=== PATIENT | female | born 1965 | race Caucasian/White ===

== ENCOUNTER 2020-04-25 15:17 | Inpatient (IN) | payer OTHER, SELFPAY ==
[2020-04-25] VITALS (11 sets, daily range): BP systolic 129–158; BP diastolic 72–91; PULSE 91–125; RESP 14–25; TEMP 36.7–37.3; O2SAT 96–100; BMI 33.7
--- NOTE | ~2020-04-25 | XR_ITS ---
XR chest 2V 04/25/2020 16:02 Indication: Dyspnea. Headache. Procedure: PA and lateral views of the chest Comparison: 10/18/2008 Findings: There is a large hiatal hernia. Heart size normal. No focal air space disease, pulmonary ed henri, pleural effusion or suspected pneumothorax. Impression: 1: No acute cardiopulmonary disease. 2: Large hiatal hernia. Reviewed, dictated and finalized at location A. Impression: 1: No acute cardiopulmonary disease. 2: Large hiatal hernia.
--- NOTE | ~2020-04-25 | XR_ITS ---
EXAMINATION: XR small bowel follow through DATE: 04/27/2020 13:33 INDICATION: Iron deficiency anemia. TECHNIQUE: Oral contrast was administered, and a time course of radiographs of the abdomen was obtain ed. Fluoroscopy of the small bowel was performed. Fluoroscopy exposure time was 0.7 minutes. The tota l number of images was 17. COMPARISON: CT abdomen and pelvis 07/25/2015 FINDINGS: There are no dilated loops of bowel. No mass or stricture. Transit time from the stomach to proximal colon was approximately 30 minutes. IMPRESSION: 1. No etiology for anemia. Reviewed, dictated and finalized at location A. IMPRESSION: 1. No etiology for anemia.
--- NOTE | 2020-04-25 15:23 | ED.GENADULT ---
HPI - General Adult General Chief complaint: Shortness of Breath/Dyspnea Stated complaint: WEAK Time Seen by Provider: 04/25/20 15:22 Source: patient and family Mode of arrival: wheelchair Limitations: no limitations History of Present Illness HPI narrative: Patient is a 54-year-old female with a history of anemia who presents for evaluation of shortness of breath and weakness. Patient reports that she has been feeling more weak over the past couple weeks, she has not been taking any of her iron pills, and not follow-up with her ocularist or beef specialist due to the COVID pandemic. Patient reports shortness of breath that is worse with exertion. She denies chest pain, but reports she is currently experiencing migraine headache. Migraine headache is located over her eyes without visual changes, there is some photosensitivity, no nausea or vomiting. No numbness. Patient reports weakness in her upper and lower extremities. No dark or tarry stool. In the past, patient has had negative endoscopy and colonoscopies. Related Data Home Medications Medication Instructions Recorded Confirmed cyclobenzaprine 10 mg PO TID PRN 04/25/20 erenumab-aooe [Aimovig 70 mg SUBCUT MONTHLY 04/25/20 Autoinjector] losartan 25 mg PO DAILY 04/25/20 paroxetine HCl 40 mg PO DAILY 04/25/20 promethazine 25 mg PO Q6-8H PRN 04/25/20 ropinirole 1 mg PO DAILY 04/25/20 sumatriptan succinate 100 mg PO BID PRN MDD 200 04/25/20 topiramate 50 mg PO DAILY 04/25/20 trazodone 200 mg PO HS PRN 04/25/20 Allergies Allergy/AdvReac Type Severity Reaction Status Date / Time azithromycin Allergy Mild Other Verified 04/25/20 15:34 prochlorperazine Allergy Mild Anxiety Verified 04/25/20 15:34 Sulfa (Sulfonamide Allergy Mild Other Verified 04/25/20 15:34 Antibiotics) Review of Systems Review of Systems: Narrative: CONSTITUTIONAL: Denies fever, chills, or sweats. EYES: Denies visual changes, redness, or discharge. ENT: Denies rhinorrhea, congestion, sore throat, or otalgia. CARDIOVASCULAR: Denies chest pain, reports palpitations, denies edema RESPIRATORY: Reports shortness of breath GASTROINTESTINAL: Denies abdominal pain, nausea, vomiting, or diarrhea. GENITOURINARY: Denies dysuria or hematuria. SKIN: Denies rash or itching. MUSCULOSKELETAL: Denies back pain, joint pain, or myalgia. NEUROLOGIC: Reports headache and weakness PMFSH Past Medical History Medical History (Updated 04/25/20 @ 16:31 by Suzi Ponce MD) Acid reflux Anemia Left humeral fracture Social History Social History (Updated 04/25/20 @ 15:44 by Suzi Ponce MD) Smoking status: Current every day smoker Alcohol intake: current Substance use: never Living arrangements: with family Gender identity (if verbalized by the patient): Female Exam Narrative: Exam Narrative: GENERAL: Awake, alert, conversant, pale HEAD: Normocephalic, atraumatic. EYES: PERRLA and EOMI. ENT: Nares clear, no rhinorrhea or epistaxis. Mucous membranes moist. NECK: Supple. CHEST: No respiratory distress, breathing even and non labored HEART: Tachycardic rate, sinus rhythm ABDOMEN:Non distended, non tender EXTREMITIES: Normal range of motion. No edema. SKIN: Pallor, warm, no rash NEURO:No focal deficits. Alert and oriented x3 Course Vital Signs Vital signs: Vital Signs Pulse Rate 125 H 04/25/20 15:25 Respiratory Rate 14 04/25/20 15:25 Blood Pressure 158/91 H 04/25/20 15:25 Pulse Oximetry 98 04/25/20 15:25 Temperature 36.7 C 04/25/20 17:31 Pulse Rate 111 H 04/25/20 17:31 Respiratory Rate 25 H 04/25/20 17:31 Blood Pressure 147/89 H 04/25/20 17:31 Pulse Oximetry 99 04/25/20 17:31 Medical Decision Making MDM Narrative Medical decision making narrative: Patient is a 54-year-old female with a history of anemia and requiring multiple blood transfusions in the past who presents for evaluation of shortness of breath. At the time of assessment,
[2020-04-25] MEDS: ONDANSETRON INJ 4 MG/2 ML VIAL IV PUSH (15:50)
--- NOTE | 2020-04-25 15:52 | ECG_ITS ---
Measurements Intervals [place] Rate: 123 P: 72 FL: 145 QRS: 31 QRSD: 68 T: 4 QT: 312 QTc: 448 Interpretive Statements SINUS TACHYCARDIA EARLY PRECORDIAL R/S TRANSITION BORDERLINE ST-T WAVE ABNORMALITY- ANTEROLAT/INF LEADS BASELINE ARTIFACT- II, III, AVF ABNORMAL ECG Electronically Signed On 04-25-2020 16:24:25 CDT by Darinel Gross D.O.
[2020-04-25 15:55] LABS: Basophils Absolute Auto 0.1 K/mm3 (0.0-0.1); Basophils Percent Auto 0.9 % (0.2-1.2); Eosinophils Absolute Auto 0.1 K/mm3 (0-0.3); Eosinophils Percent Auto 0.5 % (0-4.4); Hematocrit 21.1 % (37.0-47.0); Immature Granulocyte Absolute 0.06 K/mm3 (0.00-0.031); Immature Granulocyte Percent A 0.5 % (0-0.5); Lymphocytes Absolute Auto 2.57 K/mm3 (0.9-3.2); Lymphocytes Percent Auto 21.9 % (18.3-44.2); Mean Corpuscular HGB Conc 28.4 g/dl (32-36); Mean Corpuscular Hemoglobin 21.3 pg (26-34); Mean Corpuscular Volume 74.8 fl (80-100); Mean Platelet Volume 10.2 fl (7.4-10.4); Monocytes Absolute Auto 0.6 K/mm3 (0.1-0.6); Monocytes Percent Auto 5.5 % (2.6-8.5); Neutrophils Absolute Auto 8.3 K/mm3 (1.3-6.7); Neutrophils Percent Auto 70.7 % (45.5-73.1); Nucleated Red Blood Cells Absolute Auto 0.1 K/mm3 (0.0-0.012); Nucleated Red Blood Cells Perc 0.7 % (0.0-0.2); Platelet Count Result 550 k/mm3 (150-375); Red Blood Count 2.82 M/mm3 (4.2-5.4); Red Cell Distribution Width 19.6 % (11.5-14.5); White Blood Count 11.7 K/mm3 (4.5-10.0)
[2020-04-25 16:02] LABS: Prothrombin Time 12.4 Seconds (11.1-14.7)
[2020-04-25 16:03] LABS: Partial Thromboplastin Time 20.5 SECONDS (22.3-36.8)
[2020-04-25 16:05] LABS: Platelet Estimate Increased (Adequate)
[2020-04-25 16:06] LABS: Hypochromasia 3+ (NORMAL); Stomatocytes 1+ (NORMAL)
[2020-04-25 16:08] LABS: Tear Drop Cells 1+ (NORMAL)
[2020-04-25 16:12] LABS: Blood Urea Nitrogen 12 mg/dL (7-17); Calcium 9.1 mg/dL (8.4-10.2); Carbon Dioxide 23 mmol/L (22-30); Chloride 101 mmol/L (98-107); Estimated CRCL calculation 91 ml/min; Estimated Glomerular Filt Rate > 60; Glucose 143 mg/dL (65-105); Potassium 3.7 mmol/L (3.4-5.0); Sodium 136 mmol/L (137-145)
[2020-04-25 16:24] LABS: Troponin I < 0.012 ng/mL (0.000-0.034)
[2020-04-25] MEDS: SODIUM CHLORIDE 0.9% IV 250 ML 30 ML IV CONT (16:30)
[2020-04-25] MEDS: MAGNESIUM SULF 2 GM/WATER 50ML 2 GM/50 ML BAG IVPB (16:58)
[2020-04-25] MEDS: TUBING, BLOOD PLUM PUMP TUBING 1 EACH XX (17:21)
--- NOTE | 2020-04-25 19:50 | ADMGEN ---
This patient, Lauren Tidwell, was admitted to 3 [facility] Surg Room 312-01. Patient/family oriented to hospital policies and general routines including ID bracelet, bed and alarms, visiting hours, pain management, procedures, bathroom and other care routines, personal items, smoking policy, room service/diet, and visiting hours. Valuables list has been completed. Information on how to activate the Rapid Response Team has been discussed. Patient/Family are encouraged to report perceived risks to care and to ask questions if they do not understand what they are told or what they should do.
[2020-04-25 20:08] LABS: Hematocrit 26.7 % (37.0-47.0)
--- NOTE | 2020-04-25 20:53 | PM.IMHP ---
H&P: HPI History of Present Illness Chief complaint: Symptomatic anemia Narrative: Lauren Tidwell is a 54 year old female has a past medical history of anemia. The patient stated in 2013 she had a GI bleed was evaluated by Dr. Cooley. She was not able to follow-up with Dr. Cooley in was released from his care. The patient stated that she has not had an EGD or colonoscopy since 2013. She said when she had those scope son in 2013 dated not find anything abnormal. She states that she has been to [facility] due to her anemia has had blood transfusions but has not had 1 since around 2014. She has and had a workup since then. Patient stated that she has been feeling weak over the last couple weeks and she has been taking her iron pills but did not follow-up with any of her specialist due to the COVID pandemic. She said that her shortness of breath is worse with exertion. Patient is very pale she is experiencing some migraines and some leg cramps. She had no dark or tarry stools. Hemoglobin Was 6.0 she did get a blood transfusion which made her hemoglobin come up to 8.0 and her hematocrit 26.7. Patient is complaining of migraines at this time. Troponin was negative. Cardiopulmonary disease. Large hiatal hernia. Review of Systems Review of Systems: All systems reviewed & are unremarkable except as noted in HPI and below Constitutional: Constitutional: Reports as per HPI and Reports no additional constitutional complaints Eyes: Eyes: Reports as per HPI and Reports no additional eye complaints ENT: Reports system reviewed and no additional complaints, except as documented and Reports Normal hearing present Cardiovascular: Cardiovascular: Reports no additional cardiovascular complaints Respiratory: Respiratory: Reports no additional respiratory complaints and Reports no additional respiratory complaints Gastrointestinal: Gastrointestinal: Reports as per HPI and Reports no additional gastrointestinal complaints Musculoskeletal: Musculoskeletal: Reports no additional musculoskeletal complaints Integumentary/Breasts: Skin/Breast: Reports system reviewed and no additional complaints, except as docu and Reports as per HPI Neurologic: Reports system reviewed and no additional complaints, except as documented, Reports as per HPI and Reports Normal hearing present Psychiatric: Psychiatric: Reports no additional psychiatric complaints and Reports as per HPI Endocrine: Endocrine: Reports no additional endocrine complaints Hematologic/Lymphatic: Hematologic/Lymphatic: Reports no additional hematologic/lymphatic complaints Allergic/Immunologic: Allergic/Immunologic: Reports no additional allergic/immunologic complaints [facility] Past Medical History Medical History (Updated 04/25/20 @ 21:26 by Salome Espinosa NP) Acid reflux Anemia Anxiety Depression GERD with esophagitis HTN (hypertension) with goal to be determined Left humeral fracture Migraines Restless leg syndrome Surgical History Surgical History (Updated 04/25/20 @ 21:02 by Salome Espinosa NP) S/P tonsillectomy and adenoidectomy Family History Family History (Updated 04/25/20 @ 21:09 by Salome Espinosa NP) Mother Thyroid disease Hypertension Father Parkinson's disease Social History Social History (Updated 04/25/20 @ 21:10 by Salome Espinosa NP) Social History: The patient has 5 children. She desires to have her son as a durable power assistant district attorney for healthcare. She lives with her son. She was a homemaker. Patient uses E cigarettes no marijuana illicit drugs or alcohol. Smoking status: Current every day smoker Tobacco type: e-cigarettes/vaping Alcohol intake: never Substance use: never Living arrangements: with family Occupation/Education: other Gender identity (if verbalized by the patient): Female Spiritual care concerns: No Meds Home Medications and Allergies Home Medications Medication Instructions Rec
[2020-04-25] MEDS: SUMAtriptan SUCCINATE 25 MG TABLET 100 MG PO (21:08)
[2020-04-26] VITALS (9 sets, daily range): BP systolic 114–127; BP diastolic 62–84; PULSE 84–100; RESP 16–20; TEMP 36.2–37; O2SAT 96–100
[2020-04-26 00:35] LABS: Hematocrit 26.7 % (37.0-47.0); Hemoglobin 8.2 g/dL (12.0-15.0)
[2020-04-26 06:07] LABS: Basophils Percent Auto 0.4 % (0.2-1.2); Hematocrit 26.3 % (37.0-47.0); Hemoglobin 7.9 g/dL (12.0-15.0); Immature Granulocyte Absolute 0.15 K/mm3 (0.00-0.031); Immature Granulocyte Percent A 1.5 % (0-0.5); Lymphocytes Absolute Auto 1.43 K/mm3 (0.9-3.2); Lymphocytes Percent Auto 14.1 % (18.3-44.2); Mean Corpuscular Hemoglobin 23.4 pg (26-34); Mean Corpuscular Volume 77.8 fl (80-100); Mean Platelet Volume 9.9 fl (7.4-10.4); Monocytes Absolute Auto 0.3 K/mm3 (0.1-0.6); Monocytes Percent Auto 2.7 % (2.6-8.5); Neutrophils Absolute Auto 8.3 K/mm3 (1.3-6.7); Neutrophils Percent Auto 81.3 % (45.5-73.1); Nucleated Red Blood Cells Absolute Auto 0.1 K/mm3 (0.0-0.012); Nucleated Red Blood Cells Perc 1.2 % (0.0-0.2); Platelet Count Result 457 k/mm3 (150-375); Red Blood Count 3.38 M/mm3 (4.2-5.4); Red Cell Distribution Width 19.6 % (11.5-14.5); White Blood Count 10.2 K/mm3 (4.5-10.0)
[2020-04-26 06:41] LABS: Blood Urea Nitrogen 14 mg/dL (7-17); CRP 1.1 mg/dL (<1.0); Calcium 8.8 mg/dL (8.4-10.2); Carbon Dioxide 25 mmol/L (22-30); Chloride 103 mmol/L (98-107); Estimated CRCL calculation 100 ml/min; Estimated Glomerular Filt Rate > 60; Glucose 149 mg/dL (65-105); Magnesium 2.3 mg/dL (1.6-2.3); Potassium 4.3 mmol/L (3.4-5.0); Sodium 136 mmol/L (137-145)
[2020-04-26 07:52] LABS: Thyroid Stimulating Hormone Reflex 0.675 uIU/mL (0.465-4.68)
[2020-04-26] MEDS: LOSARTAN POTASSIUM 25 MG TABLET PO (08:20)
[2020-04-26] MEDS: TOPIRAMATE 25 MG TABLET 50 MG PO (08:20)
[2020-04-26] MEDS: PAROXETINE 20 MG TABLET 40 MG PO (08:20)
[2020-04-26] MEDS: PANTOPRAZOLE SODIUM IV 40 MG VIAL IV PUSH ×2 (08:21→20:31)
[2020-04-26] MEDS: SUMAtriptan SUCCINATE 25 MG TABLET 100 MG PO (08:36)
--- NOTE | 2020-04-26 11:49 | PM.IMPN ---
Progress Note: A&P Assessment and Plan (1) Symptomatic anemia: Code(s): D64.9 - Anemia, unspecified Status: Acute Assessment and Plan: Chronic and microcytic.She has been off of oral iron supplementation for >1 year. In review of records which were faxed from [facility], she has had an episode of significant anemia previously in August 2014 with a hemoglobin of 2.7. EGD at that time revealed gastritis. She was evaluated by Dr. Cooley but was discharged from services due to noncompliance. She reports regular NSAID use. Her hemoglobin was 6.0 and hematocrit was 21.1. She underwent transfusion 1 unit on 04/25/2020. Today, hemoglobin is 7.9 and hematocrit is 26.3. She is symptomatic, however vitals are stable. Gastroenterology has been consulted and recommendations are appreciated. Hematology has been consulted and recommendations are appreciated Continue to monitor H&H Q6H Continue IV Protonix Iron panel, B12, and folate are pending IFOB has been ordered but has not been collected. Will give MiraLax and stool softener. Avoid NSAIDs. (2) HTN (hypertension) with goal to be determined: Code(s): I10 - Essential (primary) hypertension Status: Acute Assessment and Plan: Blood pressure elevated at presentation. Blood pressures have been reviewed today and are at target. Stable at 127/84. Continue home losartan Continue to monitor blood pressure (3) Migraines: Code(s): G43.909 - Migraine, unspecified, not intractable, without status migrainosus Status: Chronic Assessment and Plan: She has a history of migraines for which she takes sumatriptan, topiramate, and Aimovig. She also admits to taking Advil regularly for headaches. She endorses mild headache today. Continue sumatriptan, aimovig, and topiramate (4) Restless leg syndrome: Code(s): G25.81 - Restless legs syndrome Status: Acute Assessment and Plan: Stable at this time. Continue with ropinirole (5) GERD with esophagitis: Code(s): K21.0 - Gastro-esophageal reflux disease with esophagitis Status: Chronic Assessment and Plan: She has a history of GERD. Continue with promethazine and Protonix IV (6) Anxiety: Code(s): F41.9 - Anxiety disorder, unspecified Status: Chronic Assessment and Plan: She feels anxious today. Continue with paroxetine and trazodone Subjective Date/time seen: 04/26/20 11:49 Interval history: Date of service: 04/26/2020 Ms. Tidwell reports to feeling anxious today about being in the hospital about her medical condition. She complains of generalized weakness, shortness of breath with ambulation, diaphoresis, palpitations, dizziness, and lightheadedness. She denies any obvious bleeding or bruising. She tells me that her symptoms have been going on for several weeks. She also has associated nausea but has not vomited. She has a mild headache at this time but she does not have a migraine. She tells me that she has been taking Advil regularly for headaches and migraines. She denies abdominal pain. Her last bowel movement was 1 week ago. She denies melena or hematochezia. She denies dysuria or hematuria. She is urinating regularly. Review of Systems Review of Systems: Narrative: A 12 point review of systems was reviewed with pertinent positives and negatives as per HPI. Exam Narrative: Exam Narrative: Ms. Tidwell is examined alone today. She is a well-nourished, pale appearing 54-year-old female who is lying supine in bed. She appears comfortable and is in no acute respiratory distress. HR 88, BP 127/84, RR 16, T 98.6?, 96% on room air Neuro: awake, alert and oriented x4, speech clear, no focal neuro deficits noted HEENMT: normocephalic, atraumatic, EOMI, sclerae anicteric, conjunctival pallor, moist oral mucosa Neck: supple, no lymphadenopathy Respiratory: clear to auscu
--- NOTE | 2020-04-26 12:39 | WPDGICN ---
Assessment and Plan Assessment and plan (1) Anemia: Code(s): D64.9 - Anemia, unspecified Status: Chronic Assessment and Plan: Patient has microcytic anemia. Suspicious for iron deficiency. Plan is to check iron studies as well as folate B12 levels. Stool Hemoccult will be obtained. There is no obvious signs of GI blood loss. But this remains a concern. Colonoscopy an EGD will be anticipated in the morning after preparation today to exclude potential GI source of iron deficiency anemia. (2) Migraines: Code(s): G43.909 - Migraine, unspecified, not intractable, without status migrainosus Status: Chronic (3) Anxiety: Code(s): F41.9 - Anxiety disorder, unspecified Status: Chronic GI Consult Note Consult date/time: 04/26/20 12:39 HPI: Lauren Tidwell is a 54 year old female seen in evaluation at the request of the hospitalist service. Patient has been found to have iron deficiency anemia. She reports a 3-4 week history of progressive fatigue weakness. She reports shortness of breath on exertion. For this reason she presented to the emergency room last evening was found to have a hemoglobin of approximately 6. This required transfusion. She does have microcytic indices suggesting chronic anemia. Patient denies any obvious signs of GI blood loss. She denies any dark stools she denies any blood in her stools. She has had no bruising. She has an no blood in her urine. No other signs of blood loss noted. Patient does report similar presentation in 1999. At that time underwent GI endoscopy by Dr. Vik moscoso that is reported to be unremarkable. These reports are not available for review at this time. Patient's family history is noncontributory there is no reported history of colon or rectal disease within the family. Review of Systems Review of Systems: All systems reviewed & are unremarkable except as noted in HPI and below PMFSH Past Medical History Medical History Acid reflux Anemia Anxiety Depression GERD with esophagitis HTN (hypertension) with goal to be determined Left humeral fracture Migraines Restless leg syndrome Surgical History Surgical History S/P tonsillectomy and adenoidectomy Family History Family History Mother Thyroid disease Hypertension Father Parkinson's disease Social History Social History Social History: The patient has 5 children. She desires to have her son as a durable power real estate attorney for healthcare. She lives with her son. She was a homemaker. Patient uses E cigarettes no marijuana illicit drugs or alcohol. Smoking status: Current every day smoker Tobacco type: e-cigarettes/vaping Alcohol intake: never Substance use: never Living arrangements: with family Occupation/Education: other Gender identity (if verbalized by the patient): Female Spiritual care concerns: No Meds Home Medications and Allergies Home Medications Medication Instructions Recorded Confirmed Type cyclobenzaprine 10 mg PO TID PRN 04/25/20 04/25/20 History erenumab-aooe [Aimovig 70 mg SUBCUT MONTHLY 04/25/20 04/25/20 History Autoinjector] losartan 25 mg PO DAILY 04/25/20 04/25/20 History paroxetine HCl 40 mg PO DAILY 04/25/20 04/25/20 History promethazine 25 mg PO Q6-8H PRN 04/25/20 04/25/20 History ropinirole 1 mg PO DAILY 04/25/20 04/25/20 History sumatriptan succinate 100 mg PO BID PRN MDD 200 04/25/20 04/25/20 History topiramate 50 mg PO DAILY 04/25/20 04/25/20 History trazodone 200 mg PO HS PRN 04/25/20 04/25/20 History Allergies Allergy/AdvReac Type Severity Reaction Status Date / Time azithromycin Allergy Mild Other Verified 04/25/20 15:34 prochlorperazine Allergy Mild Anxiety Verified 04/25/20 15:34 Sulfa (Sulf
[2020-04-26 12:42] LABS: Hematocrit 26.5 % (37.0-47.0)
[2020-04-26 13:08] LABS: Iron 16 ug/dL (37-170)
[2020-04-26 13:17] LABS: Percent Iron Saturation 3 % (20-50)
[2020-04-26 13:46] LABS: Ferritin 2.89 ng/mL (11.1-264)
[2020-04-26 14:26] LABS: Folic Acid > 20.0 ng/mL (2.76->20)
[2020-04-26] MEDS: PEG (High)/E-LYTE SOLN 4,000 ML BTL 4000 ML PO (15:13)
[2020-04-26 18:47] LABS: Hematocrit 24.8 % (37.0-47.0); Hemoglobin 7.4 g/dL (12.0-15.0)
[2020-04-26] MEDS: CYCLOBENZAPRINE HCL 10 MG TABLET PO (20:31)
[2020-04-26] MEDS: IRON SUCROSE COMPLEX 500 MG in SODIUM CHLORIDE 0.9% IV 250 ML 78.6 MG IVPB (20:57)
[2020-04-26 22:33] LABS: IFOB Positive Control Positive; Immunochemical Fecal Occult Bl Negative (N)
--- NOTE | 2020-04-26 23:50 | CONS_ITS ---
DATE OF CONSULTATION: REASON FOR CONSULTATION: Iron deficiency anemia. HISTORY OF PRESENTING ILLNESS: This is a 54-year-old female with a previous history of anemia secondary to gastrointestinal bleed. She was evaluated by Dr. Cooley and had colonoscopy and EGD done in 2013 and that came back unremarkable. The patient now came into the hospital with extreme tiredness and fatigue. She has been complaining of shortness of breath and dyspnea on exertion. She has occasional leg cramps. Denies any hematochezia, but has occasional intermittent black stool. Her hemoglobin was 6.0 on admission. She denies being a vegetarian. She denies any previous history of stomach surgeries. REVIEW OF SYSTEMS: 12-point review of system was reviewed and as per HPI, otherwise negative. PAST MEDICAL HISTORY: Gastroesophageal reflux disease, anemia, anxiety, depression, GERD, hypertension, left humeral fracture, migraine, and restless legs syndrome. PAST SURGICAL HISTORY: Tonsillectomy and adenoidectomy. FAMILY HISTORY: Mother had cervical cancer. Grandmother had lung cancer. SOCIAL HISTORY: The patient is . She is a homemaker. Denies any history of smoking and drinking. HOME MEDICATIONS: Reviewed. ALLERGIES: REVIEWED. PHYSICAL EXAMINATION: GENERAL: This patient is a well-developed, well-nourished female, in no apparent distress. Alert and oriented. VITAL SIGNS: Per nursing note. HEENT: Normocephalic, atraumatic. Clear oropharynx. LUNGS: Clear to auscultation bilaterally. CARDIOVASCULAR: Regular rate and rhythm. No murmurs. ABDOMEN: Soft, nontender, nondistended. Bowel sounds are positive in all 4 quadrants. No hepatosplenomegaly. EXTREMITIES: No edema. NEUROLOGIC: Grossly intact. LABORATORY DATA: WBC 10.2, hemoglobin 7.9, MCV 77, platelet 457,000, and neutrophils 81%. Creatinine 0.6. Iron 69, saturation 3, ferritin 2.89, vitamin B12 of 425. ASSESSMENT AND PLAN: 1. Moderate microcytic anemia. This is secondary to iron deficiency. The patient denies any obvious bleeding, but has intermittent black tarry stool. She is quite tired and fatigued. She has a previous history of anemia and had colonoscopy and EGD done by Dr. Cooley in 2013 and apparently came back unremarkable. The patient has been seen by Dr. Kingsley and plan is to perform EGD and colonoscopy in the morning. I will start her on IV iron infusion in the meantime. I have provided her my office information. Based on the colonoscopy finding, we will make further recommendations. I have answered all the questions to the patient's satisfaction. 2. History of anxiety. The patient seems to be stable. 3. Hypertension. Continue current management. JOSÉ ANTONIO Cara NOVAK M.D. INTERVENTIONAL PHYSICIAN INTERVENTIONAL PHYSICIAN D Dave MT: [place]
[2020-04-27] VITALS (16 sets, daily range): BP systolic 98–142; BP diastolic 52–70; PULSE 71–90; RESP 14–20; TEMP 36.1–37.1; O2SAT 93–99
[2020-04-27 00:28] LABS: Hematocrit 22.9 % (37.0-47.0)
[2020-04-27 00:37] LABS: Hemoglobin 6.7 g/dL (12.0-15.0)
[2020-04-27 05:56] LABS: Hematocrit 27.1 % (37.0-47.0); Hemoglobin 8.2 g/dL (12.0-15.0); Mean Corpuscular HGB Conc 30.3 g/dl (32-36); Mean Corpuscular Hemoglobin 24.8 pg (26-34); Mean Corpuscular Volume 81.9 fl (80-100); Mean Platelet Volume 9.6 fl (7.4-10.4); Platelet Count Result 349 k/mm3 (150-375); Red Blood Count 3.31 M/mm3 (4.2-5.4); Red Cell Distribution Width 21.5 % (11.5-14.5)
[2020-04-27 06:00] LABS: Blood Urea Nitrogen 14 mg/dL (7-17); Calcium 8.2 mg/dL (8.4-10.2); Carbon Dioxide 25 mmol/L (22-30); Chloride 105 mmol/L (98-107); Estimated CRCL calculation 87 ml/min; Estimated Glomerular Filt Rate > 60; Glucose 104 mg/dL (65-105); Potassium 3.6 mmol/L (3.4-5.0); Sodium 137 mmol/L (137-145)
[2020-04-27 06:26] LABS: Band Neutrophils Percent 1 % (0-6); Hypochromasia 2+ (NORMAL); Lymphocytes Absolute Manual 3.45 K/mm3 (1.1-4.5); Monocytes Percent Manual 8 % (3-9); Neutrophils Absolute Manual 10.35 K/mm3 (1.7-7.2); Neutrophils Percent Manual 68 % (46-73); Nucleated Red Blood Cells 2 %; Platelet Estimate Adequate (Adequate); Polychromasia 2+ (NORMAL); Total Cells Counted 100
[2020-04-27] MEDS: PEG (High)/E-LYTE SOLN 4,000 ML BTL 1000 ML PO (07:25)
[2020-04-27] MEDS: TOPIRAMATE 25 MG TABLET 50 MG PO (08:00)
[2020-04-27] MEDS: LOSARTAN POTASSIUM 25 MG TABLET PO (08:00)
[2020-04-27] MEDS: PANTOPRAZOLE SODIUM IV 40 MG VIAL IV PUSH ×2 (08:00→20:41)
[2020-04-27] MEDS: PAROXETINE 20 MG TABLET 40 MG PO (08:00)
[2020-04-27] MEDS: ONDANSETRON INJ 4 MG/2 ML VIAL IV PUSH (09:08)
--- NOTE | 2020-04-27 10:42 | WPDANESEPPF ---
Anes - Initial Pre Proc Eval Procedure: Operation Date: 04/27/20 10:00 Proposed Procedures p Esophagogastroduodenoscopy & Colonoscopy - Zack Kingsley MD Date/Time: 04/27/20 10:42 Surgeon: Michelle Escamilla PA-C Pre Op Diagnosis: Symptomatic anemia Patient Data Age: 54 Gender: F Height: 1.63 m Weight: 89.3 kg Last Vital Signs Temp 36.7 C 04/27/20 10:10 Pulse 88 04/27/20 10:10 Resp 18 04/27/20 10:10 BP 124/68 04/27/20 10:10 Pulse Ox 96 04/27/20 10:10 Allergies Allergy/AdvReac Type Severity Reaction Status Date / Time azithromycin Allergy Mild Other Verified 04/25/20 15:34 prochlorperazine Allergy Mild Anxiety Verified 04/25/20 15:34 Sulfa (Sulfonamide Allergy Mild Other Verified 04/25/20 15:34 Antibiotics) Home Medications Medication Instructions Recorded Confirmed Type cyclobenzaprine 10 mg PO TID PRN 04/25/20 04/25/20 History erenumab-aooe [Aimovig 70 mg SUBCUT MONTHLY 04/25/20 04/25/20 History Autoinjector] losartan 25 mg PO DAILY 04/25/20 04/25/20 History paroxetine HCl 40 mg PO DAILY 04/25/20 04/25/20 History promethazine 25 mg PO Q6-8H PRN 04/25/20 04/25/20 History ropinirole 1 mg PO DAILY 04/25/20 04/25/20 History sumatriptan succinate 100 mg PO BID PRN MDD 200 04/25/20 04/25/20 History topiramate 50 mg PO DAILY 04/25/20 04/25/20 History trazodone 200 mg PO HS PRN 04/25/20 04/25/20 History Laboratory Tests 04/25/20 04/26/20 04/26/20 15:50 12:23 12:24 WBC RBC Hgb 8.0 g/dL L g/dL (12.0-15.0) Hct 26.5 % L % (37.0-47.0) MCV MCH MCHC RDW Plt Count MPV Immature Gran % (Auto) Neut % (Auto) Lymph % (Auto) Daniels % (Auto) Eos % (Auto) Baso % (Auto) Lymph # (Auto) Daniels # (Auto) Eos # (Auto) Baso # (Auto) Abs Immat Gran (auto) Absolute Neuts (auto) Absolute Nucleated RBC Total Counted Neutrophils % (Manual) Band Neutrophils % Lymphocytes % (Manual) Monocytes % (Manual) Nucleated RBC % Abs Neuts (Manual) Abs Lymphs (Manual) Abs Monocytes (Manual) Nucleated RBCs Platelet Estimate Polychromasia Hypochromasia Sodium Potassium Chloride Carbon Dioxide BUN Creatinine Estim Creat Clear Calc Estimated GFR Glucose Calcium Iron 16 ug/dL L ug/dL (37-170) TIBC 502 ug/dL H ug/dL (261-462) % Saturation 3 % L % (20-50) Ferritin 2.89 ng/mL L ng/mL (11.1-264) Vitamin B12 Folate Stl Occult Blood (IFOB) Blood Type A Positive Antibody Screen Negative Crossmatch See Detail 04/26/20 04/26/20 04/26/20 12:24 18:25 21:53 WBC RBC Hgb 7.4 g/dL L g/dL (12.0-15.0) Hct 24.8 % L % (37.0-47.0) MCV MCH MCHC RDW Plt Count MPV Immature Gran % (Auto) Neut % (Auto) Lymph % (Auto) Daniels % (Auto) Eos % (Auto) Baso % (Auto) Lymph # (Auto) Daniels # (Auto) Eos # (Auto) Baso # (Auto) Abs Immat Gran (auto) Absolute Neuts (auto) Absolute Nucleated RBC Total Counted Neutrophils % (Manual) Band Neutrophils % Lymphocytes % (Manual) Monocytes % (Manual) Nucleated RBC % Abs Neuts (Manual
[2020-04-27] MEDS: LACTATED RINGERS 1,000 ML 150 ML IV CONT (10:55)
--- NOTE | 2020-04-27 11:15 | SUR.OPER ---
EGD ENDED 1109, COLONOSCOPY STARTED 1114
--- NOTE | 2020-04-27 12:18 | PM.IMPN ---
Progress Note: A&P Assessment and Plan (1) Symptomatic anemia: Code(s): D64.9 - Anemia, unspecified Status: Acute Assessment and Plan: Chronic and microcytic. She has been off of oral iron supplementation for >1 year. She has been evaluated by Dr. Cooley for anemia previously. At presentation, her hemoglobin was 6.0 and hematocrit was 21.1. She underwent transfusion 1 unit on 04/25/2020. She again required 1 unit of PRBCs early this morning because her hemoglobin was 6.7. Following transfusion, hemoglobin was 8.2 and hematocrit 27.1. Iron studies are consistent with iron deficiency anemia. B12 and folate wnl. IFOB was negative. Gastroenterology has been consulted and recommendations are appreciated. She had EGD and colonoscopy today which revealed a hiatal hernia and no GI source of anemia. She will undergo a small bowel follow-through today. Hematology has been consulted and recommendations are appreciated Continue IV iron infusion. She will require oral iron supplementation at discharge Continue to monitor H&H Q6H Continue IV Protonix (2) HTN (hypertension) with goal to be determined: Code(s): I10 - Essential (primary) hypertension Status: Acute Assessment and Plan: Blood pressure elevated at presentation. Blood pressures have been reviewed today and are low/normal. Continue home losartan Check orthostatic blood pressure 1 time Continue to monitor blood pressure (3) Migraines: Code(s): G43.909 - Migraine, unspecified, not intractable, without status migrainosus Status: Chronic Assessment and Plan: She has a history of migraines for which she takes sumatriptan, topiramate, and Aimovig. She also admits to taking Advil regularly for headaches. She endorses mild headache today. Continue home regimen (4) Restless leg syndrome: Code(s): G25.81 - Restless legs syndrome Status: Acute Assessment and Plan: Stable at this time. Continue with ropinirole (5) GERD with esophagitis: Code(s): K21.0 - Gastro-esophageal reflux disease with esophagitis Status: Chronic Assessment and Plan: She has a history of GERD. Continue with Protonix IV (6) Anxiety: Code(s): F41.9 - Anxiety disorder, unspecified Status: Chronic Assessment and Plan: She feels anxious today. Continue with paroxetine and trazodone Subjective Date/time seen: 04/27/20 12:18 Interval history: Date of service: 04/27/2020 Ms. Tidwell reports she is feeling very fatigued today. She endorses very mild shortness of breath when she is ambulating. She endorses mild dizziness that occurs intermittently when she rotates in bed. She denies dizziness or lightheadedness upon standing. She denies chest pain or palpitations. She denies any active bleeding or bruising. She denies dysuria or hematuria. She had a normal formed bowel movement this morning without melena or hematochezia. She has returned from colonoscopy an EGD and is feeling hungry and asking to eat. She slept well last night. She feels somewhat anxious about being in the hospital. Review of Systems Review of Systems: Narrative: A 12 point review of systems was reviewed with pertinent positives and negatives as per HPI. Exam Narrative: Exam Narrative: Ms. Tidwell is examined alone today. She is a well-nourished, pale appearing 54-year-old female who is lying supine in bed. She appears comfortable and is in no acute respiratory distress. HR 81, BP 106/60, RR 16, T 98.1?, 96% on room air Neuro: awake, alert and oriented x4, speech clear, no focal neuro deficits noted HEENMT: normocephalic, atraumatic, EOMI, sclerae anicteric, conjunctival pallor, moist oral mucosa Neck: supple, no lymphadenopathy Respiratory: clear to auscultation bilaterally, normal respiratory effort Cardio: regular rate, regular rhythm, normal S1 and S2 Abdomen: no
--- NOTE | 2020-04-27 13:05 | PC.NURSE ---
`1200 back to floor from surgery, a/o x3, assisted to b/r gait slow and steady.
[2020-04-27 14:02] LABS: Hematocrit 26.9 % (37.0-47.0); Hemoglobin 8.3 g/dL (12.0-15.0)
--- NOTE | 2020-04-27 17:52 | WPDONCPN ---
Progress Note: A/P - Additional Plan Iron deficiency anemia. So for unclear etiology. EGD showed large hiatal hernia. Colonoscopy unremarkable. A small bowel series also unremarkable. Patient will continue 2nd round of IV iron infusion. She can be discharged home on ferrous sulfate 325 mg t.i.d. with vitamin-C 500 mg daily. She will follow-up with me in 2 weeks for repeat blood test. - Time Spent With Patient Total time spent is greater than 50% in coordination of care (as documented) at patient's floor/unit and/or counseling patient: 15 - 25 minutes Subjective Interval history: Iron deficiency anemia Review of Systems - Review of Systems Patient looks quite comfortable. She remains tired and weak. Denies any bleeding and bruising. No other new complaints. - Neurologic Reports system reviewed and no additional complaints, except as documented, Reports hearing normal Exam Vital signs: Temp Pulse Resp BP Pulse Ox 36.3 C L 72 20 142/62 H 99 04/27/20 14:00 04/27/20 14:00 04/27/20 14:00 04/27/20 14:00 04/27/20 14:00 Narrative: Lungs are clear to auscultation bilaterally Cardiovascular regular rate rhythm no murmurs Abdomen soft nontender nondistended bowel sounds are positive Extremities no edema PN: Objective Data - Labs CBC & Chem 7: 04/27/20 13:53 04/27/20 05:28 Labs: Laboratory Results - last 24 hr 04/25/20 04/26/20 04/26/20 15:50 18:25 21:53 WBC RBC Hgb 7.4 L Hct 24.8 L MCV MCH MCHC RDW Plt Count MPV Immature Gran % (Auto) Neut % (Auto) Lymph % (Auto) [place]igs % (Auto) Eos % (Auto) Baso % (Auto) Lymph # (Auto) [place]igs # (Auto) Eos # (Auto) Baso # (Auto) Abs Immat Gran (auto) Absolute Neuts (auto) Absolute Nucleated RBC Total Counted Neutrophils % (Manual) Band Neutrophils % Lymphocytes % (Manual) Monocytes % (Manual) Nucleated RBC % Abs Neuts (Manual) Abs Lymphs (Manual) Abs Monocytes (Manual) Nucleated RBCs Platelet Estimate Polychromasia Hypochromasia Sodium Potassium Chloride Carbon Dioxide BUN Creatinine Estim Creat Clear Calc Estimated GFR Glucose Calcium Stl Occult Blood (IFOB) Negative Blood Type A Positive Antibody Screen Negative Crossmatch See Detail 04/27/20 04/27/20 04/27/20 00:21 05:28 05:28 WBC 15.0 H RBC 3.31 L Hgb 6.7 L* 8.2 L Hct 22.9 L 27.1 L MCV 81.9 D MCH 24.8 L D MCHC 30.3 L RDW 21.5 H Plt Count 349 MPV 9.6 Immature Gran % (Auto) Not Reportable Neut % (Auto) Not Reportable Lymph % (Auto) Not Reportable Meigs % (Auto) Not Reportable Eos % (Auto) Not Reportable Baso % (Auto) Not Reportable Lymph # (Auto) Not Reportable Meigs # (Auto) Not Reportable Eos # (Auto) Not Reportable Baso # (Auto) Not Reportable Abs Immat Gran (auto) Not Reportable Absolute Neuts (auto) Not Reportable Absolute Nucleated RBC Not Reportable Total Counted 100 Neutrophils % (Manual) 68 Band Neutrophils % 1 Lymphocytes % (Manual) 23.0 Monocytes % (Manual) 8 Nucleated RBC % Not Reportable Abs Neuts (Manual) 10.35 H Abs Lymphs (Manual) 3.45 Abs Monocytes (Manual) 1.20 H Nucleated RBCs 2 Platelet Estimate Adequate Polychromasia 2+ Hypochromasia 2+ Sodium 137 Potassium 3.6 Chloride 105 Carbon Dioxide 25 BUN 14 Creatinine 0.70 Estim Creat Clear Calc 87 Estimated GFR > 60 Glucose 104 Calcium 8.2 L Stl Occult Blood (IFOB) Blood Type Antibody Screen Crossmatch 04/27/20 13:53 WBC RBC Hgb 8.3 L Hct 26.9 L MCV MCH MCHC RDW Plt Count MPV Immature Gran % (Auto) Neut % (Auto) Lymph % (Auto) Meigs % (Auto) Eos % (Auto) Baso % (Auto) Lymph # (Auto) Meigs # (Auto) Eos # (Auto) Baso # (Auto) Abs Immat Gran (au
[2020-04-27 18:27] LABS: Hematocrit 27.7 % (37.0-47.0); Hemoglobin 8.5 g/dL (12.0-15.0)
[2020-04-27] MEDS: IRON SUCROSE COMPLEX 500 MG in SODIUM CHLORIDE 0.9% IV 250 ML 78.6 MG IVPB (18:50)
[2020-04-28 01:46] LABS: Hematocrit 28.2 % (37.0-47.0); Hemoglobin 8.4 g/dL (12.0-15.0)
[2020-04-28 06:00] VITALS: BP 116/62; PULSE 70; RESP 16; TEMP 36.9; O2SAT 93
[2020-04-28 07:45] LABS: Basophils Absolute Auto 0.1 K/mm3 (0.0-0.1); Basophils Percent Auto 0.9 % (0.2-1.2); Eosinophils Absolute Auto 0.2 K/mm3 (0-0.3); Eosinophils Percent Auto 1.6 % (0-4.4); Hematocrit 29.1 % (37.0-47.0); Hemoglobin 8.5 g/dL (12.0-15.0); Immature Granulocyte Absolute 0.27 K/mm3 (0.00-0.031); Immature Granulocyte Percent A 2.3 % (0-0.5); Immature Platelet Fraction Pct 6.7 % (0.9-11.2); Lymphocytes Absolute Auto 3.56 K/mm3 (0.9-3.2); Lymphocytes Percent Auto 30.5 % (18.3-44.2); Mean Corpuscular HGB Conc 29.2 g/dl (32-36); Mean Corpuscular Hemoglobin 24.4 pg (26-34); Mean Corpuscular Volume 83.4 fl (80-100); Monocytes Absolute Auto 0.7 K/mm3 (0.1-0.6); Monocytes Percent Auto 6.3 % (2.6-8.5); Neutrophils Absolute Auto 6.8 K/mm3 (1.3-6.7); Neutrophils Percent Auto 58.4 % (45.5-73.1); Nucleated Red Blood Cells Absolute Auto 0.2 K/mm3 (0.0-0.012); Nucleated Red Blood Cells Perc 1.8 % (0.0-0.2); Platelet Count Result 95 k/mm3 (150-375); Red Blood Count 3.49 M/mm3 (4.2-5.4); Red Cell Distribution Width 22.3 % (11.5-14.5); White Blood Count 11.7 K/mm3 (4.5-10.0)
[2020-04-28 08:00] VITALS: PULSE 68; RESP 16; O2SAT 93
[2020-04-28 08:24] LABS: Hypochromasia 2+ (NORMAL); Platelet Estimate Decreased (Adequate)
[2020-04-28 08:25] LABS: Stomatocytes 1+ (NORMAL)
[2020-04-28] MEDS: PAROXETINE 20 MG TABLET 40 MG PO (09:20)
[2020-04-28] MEDS: LOSARTAN POTASSIUM 25 MG TABLET PO (09:21)
[2020-04-28] MEDS: PANTOPRAZOLE SODIUM IV 40 MG VIAL IV PUSH (09:21)
[2020-04-28] MEDS: TOPIRAMATE 25 MG TABLET 50 MG PO (09:22)
[2020-04-28 09:31] LABS: Mean Platelet Volume 9.6 fl (7.4-10.4); Platelet Count Result 356 k/mm3 (150-375)
[2020-04-28 09:45] LABS: Alanine Aminotransferase 12 U/L (4-35); Albumin Level 3.5 g/dL (3.5-5.1); Alkaline Phosphatase 104 U/L (38-126); Aspartate Amino Transferase 20 U/L (14-36); Bilirubin,Total 0.3 mg/dL (0.2-1.3); Blood Urea Nitrogen 10 mg/dL (7-17); Calcium 8.6 mg/dL (8.4-10.2); Carbon Dioxide 25 mmol/L (22-30); Chloride 105 mmol/L (98-107); Estimated CRCL calculation 87 ml/min; Estimated Glomerular Filt Rate > 60; Glucose 107 mg/dL (65-105); Potassium 3.4 mmol/L (3.4-5.0); Sodium 140 mmol/L (137-145)
--- NOTE | 2020-04-28 11:09 | PM.DS ---
DS: Admitting Diagnosis Admitting Diagnosis Admitting Diagnosis: Essential (primary) hypertension DS: Discharge Diagnosis Discharge Diagnosis (1) Symptomatic anemia: Code(s): D64.9 - Anemia, unspecified Status: Acute Assessment and Plan: Chronic and microcytic. She has a history of anemia and has required several blood transfusions in the past. She has been off of oral iron supplementation for >1 year. At presentation, her hemoglobin was 6.0 and hematocrit was 21.1. She underwent transfusion 1 unit on 04/25/2020. She underwent EGD and colonoscopy by Dr. Kingsley on 04/27/2020, as well as small-bowel follow-through with no GI etiology for anemia. She again required 1 unit of pRBCs on 04/27 because her hemoglobin was 6.7. Iron studies are consistent with iron deficiency anemia. B12 and folate wnl. IFOB was negative. She was given IV iron infusions. H&H stabilized. She will continue on oral iron supplementation and vitamin-C. She will repeat an H&H in 1 week with results to PCP. She will establish care with Dr. Clements and follow-up with him in 2 weeks. (2) HTN (hypertension) with goal to be determined: Code(s): I10 - Essential (primary) hypertension Status: Acute Assessment and Plan: Blood pressure elevated at presentation. Subsequent pressures were at target. She will continue her losartan. (3) Migraines: Code(s): G43.909 - Migraine, unspecified, not intractable, without status migrainosus Status: Chronic Assessment and Plan: She did not have a migraine during her stay. She will continue her home regimen of sumatriptan, topiramate, and Aimovig. (4) Restless leg syndrome: Code(s): G25.81 - Restless legs syndrome Status: Acute Assessment and Plan: Remained stable. She will continue with ropinirole (5) GERD with esophagitis: Code(s): K21.0 - Gastro-esophageal reflux disease with esophagitis Status: Chronic Assessment and Plan: Remained stable. (6) Anxiety: Code(s): F41.9 - Anxiety disorder, unspecified Status: Chronic Assessment and Plan: She did endorse anxiety related to being in the hospital. This improved. She will continue with paroxetine and trazodone DS: Summary Hospital Course Reason for hospitalization: Weakness, dyspnea Hospital Course: Date of admission: 04/25/2020 Date of discharge: 04/28/2020 Twyla Tidwell is a 54-year-old female with a past medical history significant for anemia who presented to the emergency department on 04/25/2020 with complaints of feeling progressively weak over several weeks, as well as shortness of breath with exertion. She denied any bleeding or bruising. She has been hospitalized for anemia in the past with negative GI workup. She previously took iron supplements but has not taken in over 1 year. At presentation, she was tachycardic, WBC was 11.7, hemoglobin 6.0, hematocrit 21.1, platelets 550, troponin negative, an EKG revealing sinus tachycardia. She was transfused 1 unit of pRBC. She was admitted to the hospitalist service on 04/25/2020 and was seen in consultation by Gastroenterology. She underwent EGD and colonoscopy as noted above. She was also seen in consultation by facility maintenance mechanic Dr. Clements. She was initiated on IV iron infusions. She will continue oral iron supplementation and will follow-up with Dr. Clements in 2 weeks. Her hemoglobin and hematocrit stabilized and she began feeling much better. Given her improvement in symptoms, she was determined to no longer require inpatient care. On day of discharge, she had a sharp decline in platelets upon repeat shortly thereafter. Given this rapid correction, this was felt to be a lab error. She will repeat a CBC in 1 week with results to PCP and facility maintenance mechanic. We discussed worrisome signs and symptoms for which she should return in all of her questions were answered. She was discharged home in
== END 2020-04-28 13:15 | disposition home or self-care (01) | DRG 663 ==
LOC: ANHED 18:55 → ANH3MEDSUR 20:32
PROVIDERS: Internal Medicine Gastroenterology; Nurse Practitioner; Admitting Provider Family Medicine; Emergency Provider Emergency Medicine; PCP Nurse Practitioner Family; Visit Provider Physician Assistant
PROC: 0DJ08ZZ Inspection of Upper Intestinal Tract, Via Natural or Artificial Opening Endoscopic (ICD-10-PCS; CPT 43235; principal; 2020-04-27 10:00)
DX: D50.9 Iron deficiency anemia, unspecified (principal); K44.9 Diaphragmatic hernia without obstruction or gangrene; I10 Essential (primary) hypertension; G43.909 Migraine, unspecified, not intractable, without status migrainosus; G25.81 Restless legs syndrome; K21.0 Gastro-esophageal reflux disease with esophagitis; F41.9 Anxiety disorder, unspecified; F32.9 Major depressive disorder, single episode, unspecified; F17.290 Nicotine dependence, other tobacco product, uncomplicated; E66.9 Obesity, unspecified; Z68.33 Body mass index [BMI] 33.0-33.9, adult
CPT/HCPCS: 36415; 36430; 71046; 74250; 80048; 80053; 82274; 82607; 82728; 82746; 83540; 83550; 83735; 84443; 84484; 85014; 85018; 85025; 85049; 85055; 85610; 85730; 86140; 86850; 86900; 86901; 86923; 93005; 96365; 96375; 96376; 99285; A9270; C9113; J0131; J1100; J1200; J1756; J2405; J2704; J3475; J7050; J7120; P9016

== ENCOUNTER 2020-12-03 13:21 | Observation (INO) | payer OTHER, SELFPAY ==
[2020-12-03] VITALS (13 sets, daily range): BP systolic 95–140; BP diastolic 45–75; PULSE 93–109; RESP 16–25; TEMP 36.4–36.8; O2SAT 98–100; BMI 36.8
--- NOTE | ~2020-12-03 | XR_ITS ---
XR chest 1V portable DATE: 12/03/2020 14:06 INDICATION: Cough. Weakness. TECHNIQUE: Portable AP chest on 12/03/2020 at 1401 hours COMPARISON: 04/25/2020 PA and lateral chest FINDINGS: Large hiatal hernia is again noted. No pulmonary infiltrate or consolidation, pleural effusion or pulmonary vascular congestion or pneumo thorax is evident. Diffuse osteopenia. Old healed left humeral surgical neck fracture deformity. Osteoarthritis at the g lenohumeral joints. IMPRESSION: Large hiatal hernia No apparent active pulmonary disease Reviewed, dictated and finalized at location B. [employer] OPERATOR
--- NOTE | 2020-12-03 13:26 | ECG_ITS ---
Measurements Intervals [place] Rate: 103 P: 77 AR: 140 QRS: 37 QRSD: 74 T: 91 QT: 349 QTc: 458 Interpretive Statements SINUS TACHYCARDIA LOW QRS VOLTAGE IN PRECORDIAL LEADS BORDERLINE ST-T WAVE ABNORMALITY- DIFFUSE LEADS BASELINE ARTIFACT- I, AVL, V3 BORDERLINE ECG Electronically Signed On 12-03-2020 13:31:35 DISMANTLER by Darinel Gross D.O.
--- NOTE | 2020-12-03 13:42 | ED.WEAKNESS ---
HPI - Weakness General Chief complaint: Weakness Stated complaint: weakness Time Seen by Provider: 12/03/20 13:33 Source: RN notes reviewed History of Present Illness HPI Narrative: Patient presents emergency department from home via EMS for weakness. Patient states she has had weakness for the past 10 days. States that today she has had 4 episodes of emesis as well as a frontal headache consistent with her previous migraines. Patient states she does have a history of anemia and is concerned that she may need another blood transfusion she states her last blood work was checked in August of this year patient does states she has had some mild feelings of shortness of breath she denies any fever chills chest pain cough abdominal pain diarrhea or any other symptoms Related Data Home Medications Medication Instructions Recorded Confirmed Aimovig Autoinjector 70 mg SUBCUT MONTHLY 04/25/20 04/25/20 cyclobenzaprine 10 mg PO TID PRN 04/25/20 04/25/20 losartan 25 mg PO DAILY 04/25/20 04/25/20 paroxetine HCl 40 mg PO DAILY 04/25/20 04/25/20 promethazine 25 mg PO Q6-8H PRN 04/25/20 04/25/20 ropinirole 1 mg PO DAILY 04/25/20 04/25/20 sumatriptan succinate 100 mg PO BID PRN MDD 200 04/25/20 04/25/20 topiramate 50 mg PO DAILY 04/25/20 04/25/20 trazodone 200 mg PO HS PRN 04/25/20 04/25/20 Allergies Allergy/AdvReac Type Severity Reaction Status Date / Time azithromycin Allergy Mild Other Verified 12/03/20 13:27 prochlorperazine Allergy Mild Anxiety Verified 12/03/20 13:27 Sulfa (Sulfonamide Allergy Mild Other Verified 12/03/20 13:27 Antibiotics) Review of Systems Review of Systems: Narrative: Gen.: Denies fevers or chills Eyes: Denies eye pain or visual change ENT: Denies congestion Respiratory: Reports shortness of CV: Denies chest pain or palpitations GI: Denies abdominal pain reports nausea vomiting denies burning, urgency, frequency or hematuria Musculoskeletal: Denies back pain or muscle pain Neuro: Reports weakness and frontal headache Skin: Denies rash Except as documented, all other systems reviewed and negative [facility] Past Medical History Medical History (Updated 12/03/20 @ 15:43 by Alden Johnson DO) Acid reflux Anemia Anxiety Depression GERD with esophagitis HTN (hypertension) with goal to be determined Left humeral fracture Migraines Restless leg syndrome Surgical History Surgical History (Updated 04/27/20 @ 17:53 by Inocencio Clements MD) S/P tonsillectomy and adenoidectomy Family History Family History Mother Thyroid disease Hypertension Father Parkinson's disease Social History Social History Social History: The patient has 5 children. She desires to have her son as a durable power medicare biller for healthcare. She lives with her son. She was a homemaker. Patient uses E cigarettes no marijuana illicit drugs or alcohol. Smoking status: Current every day smoker Tobacco type: e-cigarettes/vaping Alcohol intake: never Substance use: never Gender identity (if verbalized by the patient): Female Spiritual care concerns: No Exam Narrative: Exam Narrative: APPEARANCE: No acute distress, nontoxic, resting in bed EYES: EOMI HEENT: Normocephalic, atraumatic, OMM RESPIRATORY: No respiratory distress Clear to auscultation bilaterally with no rhonchi wheezing or rales. CARDIOVASCULAR: Regular rate and rhythm without murmurs rubs or gallops. ABDOMINAL: Soft, nontender, nondistended, no rebound or guarding MUSCULOSKELETAl: Moves all extremities. No clubbing, cyanosis or edema. NEURO: Awake and alert x 4. Following commands, speech normal, no focal deficits SKIN:: Warm, dry. No rashes lesions or abrasions PSYCHIATRIC: Normal affect/mood, Course Course Emergency Course: Reviewed old records patient has been admitted to our facility for anemia in the past in March 2020 she had full
[2020-12-03] MEDS: SODIUM CHLORIDE 0.9% IV 1,000 ML 999 ML IV CONT (13:46)
[2020-12-03] MEDS: ONDANSETRON INJ 4 MG/2 ML VIAL IV PUSH (13:46)
--- NOTE | 2020-12-03 13:52 | PC.NURSE ---
Patient asked for urine sample at this time, patient unable to provide sample at this time. Patient declines straight cath at this time
[2020-12-03 14:22] LABS: Basophils Percent Auto 0.1 % (0.2-1.2); Eosinophils Absolute Auto 0.1 K/mm3 (0-0.3); Eosinophils Percent Auto 0.6 % (0-4.4); Immature Granulocyte Absolute 0.06 K/mm3 (0.00-0.031); Immature Granulocyte Percent A 0.6 % (0-0.5); Lymphocytes Absolute Auto 2.18 K/mm3 (0.9-3.2); Lymphocytes Percent Auto 22.9 % (18.3-44.2); Mean Corpuscular HGB Conc 26.6 g/dl (32-36); Mean Corpuscular Hemoglobin 18.6 pg (26-34); Mean Corpuscular Volume 69.9 fl (80-100); Mean Platelet Volume 9.9 fl (7.4-10.4); Monocytes Absolute Auto 0.6 K/mm3 (0.1-0.6); Neutrophils Absolute Auto 6.7 K/mm3 (1.3-6.7); Neutrophils Percent Auto 69.8 % (45.5-73.1); Nucleated Red Blood Cells Absolute Auto 0.1 K/mm3 (0.0-0.012); Platelet Count Result 461 k/mm3 (150-375); Red Blood Count 1.56 M/mm3 (4.2-5.4); Red Cell Distribution Width 26.5 % (11.5-14.5); White Blood Count 9.5 K/mm3 (4.5-10.0)
[2020-12-03 14:29] LABS: Hematocrit 10.9 % (37.0-47.0); Hemoglobin 2.9 g/dL (12.0-15.0)
[2020-12-03 14:31] LABS: Hypochromasia 2+ (NORMAL); Microcytosis 1+ (NORMAL); Tear Drop Cells 1+ (NORMAL)
[2020-12-03 14:32] LABS: INR 1.1; Prothrombin Time 14.6 Seconds (11.1-14.7)
[2020-12-03 14:33] LABS: Partial Thromboplastin Time 26.4 SECONDS (22.3-36.8)
[2020-12-03 14:47] LABS: Add Urine Microscopic? YES; Appearance Urine Clear (Clear); Bacteria Urine Trace /hpf; Bilirubin Urine Negative (Negative); Blood Urine Negative (Negative); Color Urine Straw (Yellow); Glucose Urine UA Negative (Negative); Ketones Urine Negative (Negative); Leukocyte Esterase Ur Trace LEU/UL (Negative); Nitrate Urine Negative (Negative); Protein Urine Negative (Negative); RBC Urine 0-2 /hpf (0-2); Specific Grav Ur 1.016 (1.001-1.035); Squamous Epithelial Cell Urine Many /hpf (Few); Urobilinogen Urine Negative mg/dL (<2.0)
[2020-12-03 15:00] LABS: Lipase 39 U/L (23-300)
[2020-12-03 15:23] LABS: Alanine Aminotransferase 10 U/L (4-35); Albumin Level 2.9 g/dL (3.5-5.1); Alkaline Phosphatase 115 U/L (38-126); Anion Gap 6 mmol/L (8-16); Aspartate Amino Transferase 17 U/L (14-36); Bilirubin Indirect 0.3 mg/dL (0-1.1); Bilirubin,Total 0.3 mg/dL (0.2-1.3); Blood Urea Nitrogen 11 mg/dL (7-17); Calcium 7.9 mg/dL (8.4-10.2); Carbon Dioxide 23 mmol/L (22-30); Chloride 109 mmol/L (98-107); Estimated CRCL calculation 94 ml/min; Estimated Glomerular Filt Rate > 60; Glucose 114 mg/dL (65-105); Potassium 3.7 mmol/L (3.4-5.0); Sodium 138 mmol/L (137-145)
[2020-12-03] MEDS: SODIUM CHLORIDE 0.9% IV 250 ML 30 ML IV CONT (15:29)
[2020-12-03] MEDS: LORazepam INJ (*CRX) 2 MG/ML VIAL 0.5 MG IV PUSH ×2 (15:35→17:10)
[2020-12-03 15:55] LABS: Lactate Dehydrogenase 434 U/L (313-618)
[2020-12-03 16:08] LABS: Iron < 10 ug/dL (37-170)
[2020-12-03 16:47] LABS: Percent Iron Saturation < 2 % (20-50)
--- NOTE | 2020-12-03 17:25 | ADMGEN ---
This patient, Lauren Tidwell, was admitted to Medical Room 251-01. Patient/family oriented to hospital policies and general routines including ID bracelet, bed and alarms, visiting hours, pain management, procedures, bathroom and other care routines, personal items, smoking policy, room service/diet, and visiting hours. Information on how to activate the Rapid Response Team has been discussed. Patient/Family are encouraged to report perceived risks to care and to ask questions if they do not understand what they are told or what they should do.
--- NOTE | 2020-12-03 18:49 | PM.IMHP ---
H&P: HPI History of Present Illness Date/Time: 12/03/20 18:49 Chief Complaint: Anemia Narrative: Lauren Tidwell is a 55 year old female who was discharged from our facility on 04/28/2020 with a history of anemia required several blood transfusions in the past. She has been on oral supplement for greater than a year. Her last admission her hemoglobin was 6.0 hematocrit was 21.1. She saw Dr. mendiola during that admission. She underwent an EGD and colonoscopy by Dr. montero on 04/27/2020 as well as a small-bowel follow-through with no GI etiology for anemia. She had anemia panel performed and it was consistent with iron deficiency anemia. B12 and folate were within normal limits. Her eye 5 was negative. She was given IV iron infusions. She was continued on iron supplement and vitamin-C. She was no longer able to follow-up with Dr. mendiola but had followed with another general milling superintendent due to insurance change. The patient came to the emergency room department today from home via EMS for weakness. She was also short of breath. She has been so weak for the last 10 days. She does have the history of anemia and she was concerned that she might need another blood transfusion. She does not have any chest pain no. No fever no chills no sick contacts. No nausea no vomiting but no diarrhea. No blood in her stool. She was afebrile and her blood pressure was 128/67 and then it dropped down to 108/67. Heart rate was 109 in the 94. Pulse ox was 100% on room air. Patient's hemoglobin was noted to be 2.9 with hematocrit 10.9. The patient is very pale units of packed red blood cells has been ordered and she has 1 unit already received and is getting ready to get the 2nd 1 now. Chest x-ray was read as a large hiatal hernia. No. Active pulmonary disease. The patient was started on IV fluids, Zofran, and Ativan. Patient is being admitted to observation status on the date of service of 12/03/2020. Review of Systems Review of Systems: All systems reviewed & are unremarkable except as noted in HPI and below Constitutional: Constitutional: Reports as per HPI and Reports no additional constitutional complaints Eyes: Eyes: Reports as per HPI and Reports no additional eye complaints ENT: Reports system reviewed and no additional complaints, except as documented and Reports Normal hearing present Cardiovascular: Cardiovascular: Reports no additional cardiovascular complaints Respiratory: Respiratory: Reports no additional respiratory complaints and Reports no additional respiratory complaints Gastrointestinal: Gastrointestinal: Reports as per HPI and Reports no additional gastrointestinal complaints Musculoskeletal: Musculoskeletal: Reports no additional musculoskeletal complaints Integumentary/Breasts: Skin/Breast: Reports system reviewed and no additional complaints, except as docu and Reports as per HPI Neurologic: Reports system reviewed and no additional complaints, except as documented, Reports as per HPI and Reports Normal hearing present Psychiatric: Psychiatric: Reports no additional psychiatric complaints and Reports as per HPI Endocrine: Endocrine: Reports no additional endocrine complaints Hematologic/Lymphatic: Hematologic/Lymphatic: Reports no additional hematologic/lymphatic complaints Allergic/Immunologic: Allergic/Immunologic: Reports no additional allergic/immunologic complaints [facility] Past Medical History Medical History Acid reflux Anemia Anxiety Depression GERD with esophagitis HTN (hypertension) with goal to be determined Left humeral fracture Migraines Restless leg syndrome Surgical History Surgical History S/P tonsillectomy and adenoidectomy Family History Family History Mother Diabetes mellitus Hypertension Thyroid disease Drug abuse Father Ruth
[2020-12-03] MEDS: CYCLOBENZAPRINE HCL 10 MG TABLET PO (20:05)
[2020-12-03] MEDS: SUMAtriptan SUCCINATE 25 MG TABLET 100 MG PO (20:30)
[2020-12-03] MEDS: PROMETHAZINE HCL 25 MG TABLET PO (20:30)
[2020-12-04] VITALS (13 sets, daily range): BP systolic 109–135; BP diastolic 53–76; PULSE 89–100; RESP 16–24; TEMP 36.1–37.1; O2SAT 94–100
[2020-12-04 05:38] LABS: Basophils Absolute Auto 0.1 K/mm3 (0.0-0.1); Basophils Percent Auto 0.6 % (0.2-1.2); Eosinophils Absolute Auto 0.2 K/mm3 (0-0.3); Eosinophils Percent Auto 2.1 % (0-4.4); Immature Granulocyte Absolute 0.04 K/mm3 (0.00-0.031); Immature Granulocyte Percent A 0.5 % (0-0.5); Lymphocytes Absolute Auto 1.96 K/mm3 (0.9-3.2); Lymphocytes Percent Auto 24.2 % (18.3-44.2); Mean Corpuscular HGB Conc 30.3 g/dl (32-36); Mean Corpuscular Hemoglobin 23.1 pg (26-34); Mean Corpuscular Volume 76.4 fl (80-100); Mean Platelet Volume 9.4 fl (7.4-10.4); Monocytes Absolute Auto 0.5 K/mm3 (0.1-0.6); Monocytes Percent Auto 6.3 % (2.6-8.5); Neutrophils Absolute Auto 5.4 K/mm3 (1.3-6.7); Neutrophils Percent Auto 66.3 % (45.5-73.1); Nucleated Red Blood Cells Absolute Auto 0.1 K/mm3 (0.0-0.012); Nucleated Red Blood Cells Perc 0.6 % (0.0-0.2); Platelet Count Result 371 k/mm3 (150-375); Red Blood Count 2.42 M/mm3 (4.2-5.4); Red Cell Distribution Width 23.9 % (11.5-14.5); White Blood Count 8.1 K/mm3 (4.5-10.0)
[2020-12-04 05:56] LABS: Anion Gap 4 mmol/L (8-16); Blood Urea Nitrogen 9 mg/dL (7-17); Carbon Dioxide 27 mmol/L (22-30); Chloride 108 mmol/L (98-107); Estimated CRCL calculation 103 ml/min; Estimated Glomerular Filt Rate > 60; Glucose 107 mg/dL (65-105); Potassium 3.4 mmol/L (3.4-5.0); Sodium 139 mmol/L (137-145)
[2020-12-04 06:08] LABS: Hematocrit 18.5 % (37.0-47.0); Hemoglobin 5.6 g/dL (12.0-15.0)
[2020-12-04] MEDS: FERROUS SULFATE 324 MG TABLET PO ×3 (09:47→17:47)
[2020-12-04] MEDS: LOSARTAN POTASSIUM 25 MG TABLET PO (09:47)
[2020-12-04] MEDS: PARoxetine 20 MG TABLET 40 MG PO (09:48)
[2020-12-04] MEDS: PROMETHAZINE HCL 25 MG TABLET PO ×2 (09:48→17:46)
[2020-12-04] MEDS: TOPIRAMATE 25 MG TABLET 50 MG PO (09:48)
[2020-12-04] MEDS: rOPINIRole HCL 1 MG TABLET PO (09:48)
[2020-12-04] MEDS: SODIUM CHLORIDE 0.9% IV 250 ML 30 ML IV CONT (09:50)
[2020-12-04] MEDS: CYCLOBENZAPRINE HCL 10 MG TABLET PO ×2 (09:54→17:46)
[2020-12-04] MEDS: ONDANSETRON INJ 4 MG/2 ML VIAL IV PUSH ×2 (11:32→17:46)
[2020-12-04] MEDS: LORazepam INJ (*CRX) 2 MG/ML VIAL 0.5 MG IV PUSH ×2 (13:21→19:59)
[2020-12-04] MEDS: CYANOCOBALAMIN INJ 1,000 MCG/ML VIAL 1000 MCG IM (13:22)
[2020-12-04] MEDS: LIDOCAINE 5% PATCH 2 PATCH TRANSDERM (13:24)
--- NOTE | 2020-12-04 13:55 | PDONCCN ---
HPI - Date of Consult Date/Time: 12/04/20 13:55 Requesting Physician: Davis José MD Primary Care Provider: BRITTANI OLIVERA, TECHNICAL PROPOSAL WRITER - Consult Narrative Reason for consult: Profound anemia Narrative: Lauren Tidwell is a 55 year old female with history of iron deficiency anemia. Patient was seen last in March of 2020 when she was admitted with profound anemia. She had EGD and colonoscopy done by Dr. Kingsley in March of 2020 that showed large hiatal hernia. Colonoscopy was unremarkable. Small bowel series was also unremarkable. She now came into the hospital with increasing tiredness and fatigue along with shortness of breath. She denies any bleeding including melena hematochezia. Denies any vaginal bleeding. She denies being a vegetarian. Denies any weight loss. She has some intermittent nausea. She received iron infusion during the last hospital admission in March of 2020. She was recommended to continue oral iron with vitamin-C. Hemoglobin was found to be 2.9. She received 3 units of packed red blood cell. Hemoglobin has improved. Review of Systems - Review of Systems All systems reviewed & are unremarkable except as noted in HPI and bel - Neurologic Reports system reviewed and no additional complaints, except as documented, Reports hearing normal [facility] Medical History: Medical History (Last Reviewed 12/03/20 @ 18:57 by Salome Espinosa NP) Acid reflux Anemia Anxiety Depression GERD with esophagitis HTN (hypertension) with goal to be determined Left humeral fracture Migraines Restless leg syndrome Surgical History: Surgical History (Last Reviewed 12/03/20 @ 18:57 by Salome Espinosa NP) S/P tonsillectomy and adenoidectomy Family History: Family History (Last Reviewed 12/03/20 @ 18:57 by Salome Espinosa NP) Mother Diabetes mellitus Hypertension Thyroid disease Drug abuse Father Parkinson's disease - Social History Social History: Social History (Last Updated 12/03/20 @ 18:58 by Salome Espinosa NP) Gender Identity: Gender identity (if verbalized by the patient): Female Alcohol Use: Alcohol intake: current Drinks per week: 1 Substance Use: Substance use: current Substance use type: marijuana Last use: WEEKLY Others: Spiritual care concerns: No Smoking Status: Smoking status: Current every day smoker Tobacco type: e-cigarettes/vaping Meds Home Medications Medication Instructions Recorded Confirmed Type cyclobenzaprine 10 mg PO TID PRN 04/25/20 12/03/20 History losartan 25 mg PO DAILY 04/25/20 12/03/20 History paroxetine HCl 40 mg PO DAILY 04/25/20 12/03/20 History promethazine 25 mg PO Q6-8H PRN 04/25/20 12/03/20 History ropinirole 1 mg PO DAILY 04/25/20 12/03/20 History sumatriptan succinate 100 mg PO BID PRN MDD 200 04/25/20 12/03/20 History topiramate 50 mg PO DAILY 04/25/20 12/03/20 History trazodone 200 mg PO HS PRN 04/25/20 12/03/20 History ferrous sulfate 325 mg PO TID #60 tablet 04/28/20 12/03/20 Rx Allergies Allergy/AdvReac Type Severity Reaction Status Date / Time azithromycin Allergy Mild Other Verified 12/03/20 17:54 prochlorperazine Allergy Mild Anxiety Verified 12/03/20 13:27 Sulfa (Sulfonamide Allergy Mild Other Verified 12/03/20 17:54 Antibiotics) Results - Labs CBC & Chem 7: 12/04/20 05:14 12/04/20 05:14 Labs: Short CBC 12/03/20 12/04/20 Range/Units 14:13 05:14 WBC 9.5 8.1 (4.5-10.0) K/mm3 Hgb 2.9 L* D 5.6 L* (12.0-15.0) g/dL Hct 10.9 L* 18.5 L* (37.0-47.0) % Plt Count 461 H 371 (150-375) k/mm3 BMP 12/03/20 12/04/20 14:13 05:14 Sodium 138 139 Potassium 3.7 3.4 Chloride 109 H 108 H Carbon Dioxide 23 27 BUN 11 9 Creatinine 0.60 L 0.60 L Glucose 114 H 107 H Calcium 7.9 L 8.0 L Liver Function 12/03/20 12/03/20 Range/Units 13:48 14:13 Total Bilirubin Cancelled 0.3 Direct Bilirubin Cancelled 0.0
--- NOTE | 2020-12-04 14:23 | WPDGICN ---
Assessment and Plan Assessment and plan (1) Symptomatic anemia: Code(s): D64.9 - Anemia, unspecified Status: Acute Assessment and Plan: FATEMEH with negative egd and colonoscopy last year given large hiatal hernia and ongoing nausea, will assess with egd again we will also schedule outpatient small bowel capsule endoscopy to assess for avm's, etc patient denies overt gib hematology on board, no signs of hemolysis (2) Hiatal hernia: Code(s): K44.9 - Diaphragmatic hernia without obstruction or gangrene Status: Acute Assessment and Plan: recently with more nausea, egd tomorrow and consider to refer to surgery as outpatient for fundoplication (3) Nausea: Code(s): R11.0 - Nausea Status: Acute Assessment and Plan: antiemetics prn (4) GERD with esophagitis: Code(s): K21.0 - Gastro-esophageal reflux disease with esophagitis Status: Chronic GI Consult Note Consult date/time: 12/04/20 14:23 Reason for consult: symptomatic FATEMEH HPI: Lauren Tidwell is a 55 year old female with known history of iron deficiency anemia at least since 2013, she had EGD and colonoscopy apparently no major findings, then admitted last March of 2020 again with profound anemia, hb 6 requiring blood transfusion and iv iron therapy. Dr Kingsley performed EGD and colonoscopy, nothing to explain source of anemia but she had large hiatal hernia. Also had SBFT that was normal (never had capsule endoscopy). Denies any weight loss, abdominal pain, obvious signs of bleeding but she had some intermittent nausea and using PPI for last few months, no blood thinners or nsaid's. She came here with progressive fatigue, dyspnea on exertion and dizziness. Hb 3 and received blood transfusion. LDH, B12 and folate normal. Review of Systems Constitutional: Constitutional: Reports fatigue and Reports weakness Eyes: Eyes: Reports no additional eye complaints ENT: Reports Normal hearing present Cardiovascular: Cardiovascular: Reports lightheadedness Respiratory: Respiratory: Denies hemoptysis and Reports dyspnea on exertion Gastrointestinal: Gastrointestinal: Denies abdominal pain, Denies melena and Reports nausea Genitourinary: Genitourinary: Denies hematuria and Denies flank pain Musculoskeletal: Musculoskeletal: Denies neck pain Integumentary/Breasts: Skin/Breast: Denies dry skin Neurologic: Denies confusion Psychiatric: Psychiatric: Denies confusion Endocrine: Endocrine: Reports fatigue Hematologic/Lymphatic: Comments: anemia [facility] Past Medical History Medical History (Updated 12/04/20 @ 14:34 by Jason Qureshi MD) Acid reflux Anemia Anxiety Depression GERD with esophagitis Hiatal hernia HTN (hypertension) with goal to be determined Left humeral fracture Migraines Nausea Restless leg syndrome Surgical History Surgical History S/P tonsillectomy and adenoidectomy Family History Family History Mother Diabetes mellitus Hypertension Thyroid disease Drug abuse Father Parkinson's disease Social History Social History (Updated 12/03/20 @ 18:58 by Salome Espinosa NP) Social History: The patient has 5 children. She desires to have her son as a durable power finance attorney for healthcare. She lives with her son. She was a homemaker. Patient uses E cigarettes no marijuana illicit drugs or alcohol. She is . Smoking status: Current every day smoker Tobacco type: e-cigarettes/vaping Alcohol intake: current Drinks per week: 1 Substance use: current Substance use type: marijuana Last use: WEEKLY Gender identity (if verbalized by the patient): Female Spiritual care concerns: No Meds Home Medications and Allergies Home Medications Medication Instructions Recorded Confirmed Type cyclobenzaprine 10 mg PO TID PRN 04/25/20 12/03/20
[2020-12-04 16:00] LABS: Hematocrit 27.2 % (37.0-47.0); Hemoglobin 8.7 g/dL (12.0-15.0)
--- NOTE | 2020-12-04 19:01 | WPDANESEPP ---
Anes - Eval Pre Procedure Procedure: Operation Date: 12/05/20 08:30 Proposed Procedures p Esophagogastroduodenoscopy - Jason Qureshi MD Date/Time: 12/04/20 19:01 Pre Op Diagnosis: Symptomatic Anemia Patient Data Age: 55 Gender: F Height: 5 ft 4 in Weight: 97.5 kg Last Vital Signs Temp 97.6 F 12/04/20 13:40 Pulse 94 12/04/20 16:00 Resp 16 12/04/20 13:40 BP 126/65 12/04/20 13:40 Pulse Ox 97 12/04/20 15:52 Allergies Allergy/AdvReac Type Severity Reaction Status Date / Time azithromycin Allergy Mild Other Verified 12/03/20 17:54 prochlorperazine Allergy Mild Anxiety Verified 12/03/20 13:27 Sulfa (Sulfonamide Allergy Mild Other Verified 12/03/20 17:54 Antibiotics) Home Medications Medication Instructions Recorded Confirmed Type cyclobenzaprine 10 mg PO TID PRN 04/25/20 12/03/20 History losartan 25 mg PO DAILY 04/25/20 12/03/20 History paroxetine HCl 40 mg PO DAILY 04/25/20 12/03/20 History promethazine 25 mg PO Q6-8H PRN 04/25/20 12/03/20 History ropinirole 1 mg PO DAILY 04/25/20 12/03/20 History sumatriptan succinate 100 mg PO BID PRN MDD 200 04/25/20 12/03/20 History topiramate 50 mg PO DAILY 04/25/20 12/03/20 History trazodone 200 mg PO HS PRN 04/25/20 12/03/20 History ferrous sulfate 325 mg PO TID #60 tablet 04/28/20 12/03/20 Rx Laboratory Tests 12/03/20 12/04/20 12/04/20 13:44 05:14 05:14 WBC 8.1 K/mm3 K/mm3 (4.5-10.0) RBC 2.42 M/mm3 L M/mm3 (4.2-5.4) Hgb 5.6 g/dL L* g/dL (12.0-15.0) Hct 18.5 % L* % (37.0-47.0) MCV 76.4 fl L D fl (80-100) MCH 23.1 pg L D pg (26-34) MCHC 30.3 g/dl L g/dl (32-36) RDW 23.9 % H % (11.5-14.5) Plt Count 371 k/mm3 k/mm3 (150-375) MPV 9.4 fl fl (7.4-10.4) Immature Gran % (Auto) 0.5 % % (0-0.5) Neut % (Auto) 66.3 % % (45.5-73.1) Lymph % (Auto) 24.2 % % (18.3-44.2) [place] % (Auto) 6.3 % % (2.6-8.5) Eos % (Auto) 2.1 % % (0-4.4) Baso % (Auto) 0.6 % % (0.2-1.2) Lymph # (Auto) 1.96 K/mm3 K/mm3 (0.9-3.2) [place] # (Auto) 0.5 K/mm3 K/mm3 (0.1-0.6) Eos # (Auto) 0.2 K/mm3 K/mm3 (0-0.3) Baso # (Auto) 0.1 K/mm3 K/mm3 (0.0-0.1) Abs Immat Gran (auto) 0.04 K/mm3 H K/mm3 (0.00-0.031) Absolute Neuts (auto) 5.4 K/mm3 K/mm3 (1.3-6.7) Absolute Nucleated RBC 0.1 K/mm3 H K/mm3 (0.0-0.012) Nucleated RBC % 0.6 % H % (0.0-0.2) Sodium 139 mmol/L mmol/L (137-145) Potassium 3.4 mmol/L mmol/L (3.4-5.0) Chloride 108 mmol/L H mmol/L (98-107) Carbon Dioxide 27 mmol/L mmol/L (22-30) Anion Gap 4 mmol/L L mmol/L (8-16) BUN 9 mg/dL mg/dL (7-17) Creatinine 0.60 mg/dL L mg/dL (0.7-1.0) Estim Creat Clear Calc 103 ml/min ml/min Estimated GFR > 60 (59 - ) Glucose 107 mg/dL H mg/dL (65-105) Calcium 8.0 mg/dL L mg/dL (8.4-10.2) Blood Type A Positive Antibody Screen Negative Crossmatch See Detail 12/04/20 15:54 WBC RBC Hgb 8.7 g/dL L D g/dL (12.0-15.0) Hct 27.2 % L % (37.0-47.0) MCV MCH MCHC RDW Plt Count MPV Immature Gran % (Auto) Neut % (Auto) Lymph % (Auto) [place] % (Auto) Eos % (Auto) Baso % (Auto) Lymph # (Auto) [place] # (Auto) Eos # (Auto) Baso # (Auto) Abs Immat Gran (auto) Absolute Neuts (auto) Absolute Nucleated RBC Nucleated RBC % Sodium Potassium Chloride Carbon Dioxide Anion Gap BUN Creatinine Estim Creat Clear Calc Estimated GFR Glucose Calcium Blood Type Antibody Screen Crossmatch
--- NOTE | 2020-12-04 19:01 | PM.IMPN ---
Subjective Date/time seen: 12/04/20 19:01 Objective Data Vital Signs Vital Signs: Vital Signs - 24 hr 12/03/20 19:05 12/03/20 20:00 12/03/20 20:05 Temperature 97.5 F L 97.5 F L Pulse Rate 106 H 102 H 95 Respiratory Rate 18 21 H Blood Pressure 103/58 L 103/64 Pulse Oximetry 100 100 12/03/20 22:35 12/03/20 22:36 12/04/20 00:00 Temperature 98.0 F 98.0 F Pulse Rate 93 93 92 Respiratory Rate 20 20 Blood Pressure 126/64 126/64 Pulse Oximetry 99 99 12/04/20 04:00 12/04/20 06:00 12/04/20 06:49 Temperature 97.0 F L 97.2 F L Pulse Rate 91 97 100 Respiratory Rate 20 24 H Blood Pressure 135/53 L 109/57 L Pulse Oximetry 98 94 12/04/20 07:05 12/04/20 08:00 12/04/20 08:05 Temperature 98.5 F 98.7 F Pulse Rate 96 89 95 Respiratory Rate 18 20 Blood Pressure 112/69 118/76 Pulse Oximetry 96 98 12/04/20 09:55 12/04/20 10:50 12/04/20 13:40 Temperature 97.9 F 97.9 F 97.6 F Pulse Rate 91 91 90 Respiratory Rate 16 16 16 Blood Pressure 116/67 116/67 126/65 Pulse Oximetry 99 99 100 12/04/20 15:52 12/04/20 16:00 Temperature Pulse Rate 94 Respiratory Rate Blood Pressure Pulse Oximetry 97 Intake/Output Intake/Output: Intake & Output 12/01/20 12/02/20 12/03/20 12/04/20 23:59 23:59 23:59 23:59 Intake Total 1800 2100 Output Total 700 Balance 1800 1400 Meds/Results Medications: Active Medications Generic Name Dose Route Start Last Admin Trade Name Rakanq PRN Reason Stop Dose Admin Cyanocobalamin 1,000 mcg 12/04/20 12:35 12/04/20 13:22 Cyanocobalamin Inj 1,000 Mcg/Ml Vial IM 12/06/20 09:01 1,000 mcg DAILY FER Administration Cyclobenzaprine HCl 10 mg 12/03/20 18:47 12/04/20 17:46 Cyclobenzaprine Hcl 10 Mg Tablet PO 10 mg TID PRN Administration Muscle Spasm Ferrous Sulfate 324 mg 12/04/20 09:00 12/04/20 17:47 Ferrous Sulfate 324 Mg Tablet PO 324 mg TID EFR Administration Iron Sucrose 300 mg/ Sodium 115 mls @ 76.667 mls/hr 12/05/20 09:00 Chloride IVPB 12/08/20 09:01 DAILY FER Lidocaine 2 patch 12/04/20 09:00 12/04/20 13:24 Lidocaine 5% Patch TRANSDERM 2 patch DAILY FER Administration Lorazepam 0.5 mg 12/04/20 18:32 Lorazepam Inj (*Crx) 2 Mg/Ml Vial IV PUSH HS PRN Insomnia Losartan Potassium 25 mg 12/04/20 09:00 12/04/20 09:47 Losartan Potassium 25 Mg Tablet PO 25 mg DAILY FER Administration Nicotine 1 patch 12/03/20 19:05 12/04/20 09:47 Nicotine (*Pbkc) 14 Mg Patch TRANSDERM Not Given QAM [facility] Ondansetron HCl 4 mg 12/04/20 11:11 12/04/20 17:46 Ondansetron Inj 4 Mg/2 Ml Vial IV PUSH 4 mg Q6H PRN Administration Nausea And Vomiting Paroxetine HCl 40 mg 12/04/20 09:00 12/04/20 09:48 Paroxetine 20 Mg Tablet PO 40 mg DAILY FER Administration Promethazine HCl 25 mg 12/03/20 18:47 12/04/20 17:46 Promethazine Hcl 25 Mg Tablet PO 25 mg Q6H PRN Administration Nausea And Vomiting Ropinirole HCl 0.5 mg 12/05/20 09:00 Ropinirole Hcl 0.5 Mg Tablet PO BID FER Sumatriptan Succinate 100 mg 12/03/20 18:47 12/03/20 20:30 Sumatriptan Succinate 25 Mg Tablet PO 100 mg BID PRN Administration Headache Topiramate 50 mg 12/04/20 09:00 12/04/20 09:48 Topiramate 25 Mg Tablet PO 50 mg DAILY FER Administration Trazodone HCl 200 mg 12/03/20 18:47 Trazodone Hcl 50 Mg Tablet PO HS PRN Sleep Radiology Results: ITS Impressions Chest X-Ray 12/03/20 14:07 IMPRESSION: Large hiatal hernia No apparent active pulmonary disease Labs Labs: Laboratory Results - last 24 hr 12/03/20 12/04/20 12/04/20 13:44 05:14 05:14 WBC 8.1 RBC 2.42 L Hgb 5.6 L* Hct 18.5 L* MCV 76.4 L D MCH 23.1 L D MCHC 30.3 L RDW 23.9 H Plt Count 371 MPV 9.4 Immature Gran % (Auto) 0.5 Neut % (Auto) 66.3 Lymph % (Auto) 24.2 [place] % (Auto) 6.3 Eos % (Auto) 2.1
[2020-12-04] MEDS: SUMAtriptan SUCCINATE 25 MG TABLET 100 MG PO (19:52)
[2020-12-05] VITALS (7 sets, daily range): BP systolic 112–133; BP diastolic 55–84; PULSE 84–96; RESP 17–220; TEMP 36.5–36.6; O2SAT 93–100
--- NOTE | 2020-12-05 06:52 | PC.NURSE ---
Twyla Tidwell has been taken down for EGD at 12/05/2020 06:30.
[2020-12-05] MEDS: LACTATED RINGERS 1,000 ML 150 ML IV CONT (07:13)
--- NOTE | 2020-12-05 07:54 | WPDANESEPPF ---
Anes - Initial Pre Proc Eval Procedure: Operation Date: 12/05/20 08:30 Proposed Procedures p Esophagogastroduodenoscopy - Jason Qureshi MD Date/Time: 12/05/20 07:54 Surgeon: Davis José MD Pre Op Diagnosis: Symptomatic Anemia Patient Data Age: 55 Gender: F Height: 5 ft 4 in Weight: 97.5 kg Last Vital Signs Temp 97.7 F 12/05/20 06:49 Pulse 88 12/05/20 06:49 Resp 17 12/05/20 06:49 BP 122/73 12/05/20 06:49 Pulse Ox 97 12/05/20 06:49 Allergies Allergy/AdvReac Type Severity Reaction Status Date / Time azithromycin Allergy Mild Other Verified 12/03/20 17:54 prochlorperazine Allergy Mild Anxiety Verified 12/03/20 13:27 Sulfa (Sulfonamide Allergy Mild Other Verified 12/03/20 17:54 Antibiotics) Home Medications Medication Instructions Recorded Confirmed Type cyclobenzaprine 10 mg PO TID PRN 04/25/20 12/03/20 History losartan 25 mg PO DAILY 04/25/20 12/03/20 History paroxetine HCl 40 mg PO DAILY 04/25/20 12/03/20 History promethazine 25 mg PO Q6-8H PRN 04/25/20 12/03/20 History ropinirole 1 mg PO DAILY 04/25/20 12/03/20 History sumatriptan succinate 100 mg PO BID PRN MDD 200 04/25/20 12/03/20 History topiramate 50 mg PO DAILY 04/25/20 12/03/20 History trazodone 200 mg PO HS PRN 04/25/20 12/03/20 History ferrous sulfate 325 mg PO TID #60 tablet 04/28/20 12/03/20 Rx Laboratory Tests 12/03/20 12/04/20 13:44 15:54 Hgb 8.7 g/dL L D g/dL (12.0-15.0) Hct 27.2 % L % (37.0-47.0) Blood Type A Positive Antibody Screen Negative Crossmatch See Detail Patient hx anesthesia problems: none Family hx anesthesia problems: none PMFSH Past Medical History Medical History Acid reflux Anemia Anxiety Depression GERD with esophagitis Hiatal hernia HTN (hypertension) with goal to be determined Left humeral fracture Migraines Nausea Restless leg syndrome Smoker Symptomatic anemia Surgical History Surgical History S/P tonsillectomy and adenoidectomy Family History Family History Mother Diabetes mellitus Hypertension Thyroid disease Drug abuse Father Parkinson's disease Social History Social History (Updated 12/03/20 @ 18:58 by Salome Espinosa NP) Social History: The patient has 5 children. She desires to have her son as a durable power prosecuting attorney for healthcare. She lives with her son. She was a homemaker. Patient uses E cigarettes no marijuana illicit drugs or alcohol. She is . Smoking status: Current every day smoker Tobacco type: e-cigarettes/vaping Alcohol intake: current Drinks per week: 1 Substance use: current Substance use type: marijuana Last use: WEEKLY Gender identity (if verbalized by the patient): Female Spiritual care concerns: No Anes - Eval Final PreProcedure Day of Procedure 12/05/20 07:54 Patient weight: obese Heart: regular rate and rhythm Lungs: clear to auscultation Airway: Mallampati scale class III Neurological: alert and oriented Last oral intake: >/= 8 hours ASA classification: IV Emergent: no Anesthetic plan: proceed Anesthesia type and monitoring: general GIVS and standard monitoring Informed Consent: The patient's anesthetic plan and its attendant risks and benefits were discussed with the patient/family/POA. Questions were solicited and answers provided to the satisfaction of the patient/family/POA.
[2020-12-05] MEDS: BENZOCAINE (*SP) 60 ML SPRAY CAN (HURRICAINE) 1 SPRAY MUCOUS MEM (08:35)
[2020-12-05 09:41] LABS: Glucose Point of Care 116 (65-105)
[2020-12-05] MEDS: LIDOCAINE 5% PATCH 2 PATCH TRANSDERM (10:05)
[2020-12-05] MEDS: PANTOPRAZOLE 40 MG TABLET PO (10:06)
[2020-12-05] MEDS: PARoxetine 20 MG TABLET 40 MG PO (10:08)
[2020-12-05] MEDS: FERROUS SULFATE 324 MG TABLET PO ×2 (10:09→13:35)
[2020-12-05] MEDS: LOSARTAN POTASSIUM 25 MG TABLET PO (10:09)
[2020-12-05] MEDS: TOPIRAMATE 25 MG TABLET 50 MG PO (10:09)
[2020-12-05] MEDS: CYANOCOBALAMIN INJ 1,000 MCG/ML VIAL 1000 MCG IM (10:10)
[2020-12-05] MEDS: rOPINIRole HCL 0.5 MG TABLET PO (10:10)
[2020-12-05] MEDS: LORazepam (*CRX) 0.5 MG TABLET PO (10:37)
[2020-12-05] MEDS: SUCRALFATE 1 GM TABLET PO (11:44)
[2020-12-05] MEDS: SUMAtriptan SUCCINATE 25 MG TABLET 100 MG PO (11:44)
--- NOTE | 2020-12-05 13:45 | PM.DS ---
DS: Admitting Diagnosis Admitting Diagnosis Admitting Diagnosis: (1) Anemia: Code(s): D64.9 - Anemia, unspecified Status: Chronic Assessment and Plan: Workups and was found to have iron deficiency anemia. The patient was seen by Dr. mendiola in the past but due to insurance issue she was not able to follow with him. The patient generally gets iron infusions but she states she does not like to take them so she has been taking oral iron. Her hemoglobin today was 2.9 she is getting ready to get her 2nd unit of packed red blood cells. She most likely will need iron infusion as she had iron studies drawn before 1st unit packed red blood cells. Her last admission she received several units of packed red blood cell as well as iron infusions. I did place the patient on telemetry and we can monitor to that every 4 hours. So for her blood pressure has been normal. Patient is pale she had symptoms of being short of breath and weak. Patient had colonoscopy an EGD back in March when she was here and there was no active bleed. (2) Restless leg syndrome: Code(s): G25.81 - Restless legs syndrome Status: Acute Assessment and Plan: Continue with home medications of ropinirole (3) GERD with esophagitis: Code(s): K21.0 - Gastro-esophageal reflux disease with esophagitis Status: Chronic Assessment and Plan: Continue with home medications. (4) Depression: Code(s): F32.9 - Major depressive disorder, single episode, unspecified Status: Chronic Assessment and Plan: Continue with Paxil (5) Anxiety: Code(s): F41.9 - Anxiety disorder, unspecified Status: Chronic Assessment and Plan: Continue with trazodone (6) HTN (hypertension) with goal to be determined: Code(s): I10 - Essential (primary) hypertension Status: Acute Assessment and Plan: Continue with losartan (7) Symptomatic anemia: Code(s): D64.9 - Anemia, unspecified Status: Acute Assessment and Plan: Transfuse as needed. Iron infusion as needed. DS: Discharge Diagnosis Discharge Diagnosis (1) Symptomatic anemia: Code(s): D64.9 - Anemia, unspecified Status: Acute (2) GERD with esophagitis: Code(s): K21.0 - Gastro-esophageal reflux disease with esophagitis Status: Chronic (3) Nausea: Code(s): R11.0 - Nausea Status: Acute (4) Hiatal hernia: Code(s): K44.9 - Diaphragmatic hernia without obstruction or gangrene Status: Acute (5) HTN (hypertension) with goal to be determined: Code(s): I10 - Essential (primary) hypertension Status: Acute (6) Anxiety: Code(s): F41.9 - Anxiety disorder, unspecified Status: Chronic (7) Depression: Code(s): F32.9 - Major depressive disorder, single episode, unspecified Status: Chronic (8) Restless leg syndrome: Code(s): G25.81 - Restless legs syndrome Status: Acute (9) Migraines: Code(s): G43.909 - Migraine, unspecified, not intractable, without status migrainosus Status: Chronic DS: Summary Hospital Course Reason for hospitalization: Fatigue. Hospital Course: Patient was transfused as well. (1) Symptomatic anemia: Code(s): D64.9 - Anemia, unspecified Status: Acute Assessment and Plan: FATEMEH with negative egd and colonoscopy last year given large hiatal hernia and ongoing nausea, will assess with egd again we will also schedule outpatient small bowel capsule endoscopy to assess for avm's, etc patient denies overt gib hematology on board, no signs of hemolysis (2) Hiatal hernia: Code(s): K44.9 - Diaphragmatic hernia without obstruction or gangrene Status: Acute Assessment and Plan: recently with more nausea, egd tomorrow and consider to refer to surgery as outpatient for fundoplication (3) Nausea: Code(s): R11.0 - Nausea Status: Acute Assessment and Plan: antiemet
[2020-12-06 13:33] LABS: Haptoglobin 205 mg/dL (43-212)
== END 2020-12-05 15:10 | disposition home or self-care (01) ==
LOC: ANHED 15:43 → ANH2MED 12-04 14:30
PROVIDERS: Family Medicine; Internal Medicine Gastroenterology; Admitting Provider Internal Medicine; Emergency Provider Emergency Medicine; PCP Nurse Practitioner Family; Visit Provider Internal Medicine
PROC: 0DJ08ZZ Inspection of Upper Intestinal Tract, Via Natural or Artificial Opening Endoscopic (ICD-10-PCS; CPT 43235; principal; 2020-12-05 08:30)
DX: D50.9 Iron deficiency anemia, unspecified (principal); R06.02 Shortness of breath; K25.9 Gastric ulcer, unspecified as acute or chronic, without hemorrhage or perforation; K21.00 Gastro-esophageal reflux disease with esophagitis, without bleeding; K44.9 Diaphragmatic hernia without obstruction or gangrene; F41.8 Other specified anxiety disorders; F17.290 Nicotine dependence, other tobacco product, uncomplicated; G25.81 Restless legs syndrome; I10 Essential (primary) hypertension; R11.0 Nausea; Z79.899 Other long term (current) drug therapy
CPT/HCPCS: 43239; 36415; 36430; 71045; 80048; 80053; 80076; 81001; 82248; 82607; 83010; 83540; 83550; 83615; 83690; 85014; 85018; 85025; 85610; 85730; 86850; 86880; 86900; 86901; 86923; 87077; 87086; 87088; 88305; 93005; 96361; 96365; 96372; 96374; 96375; 96376; 99285; A9270; G0378; G0379; J0131; J1756; J2060; J2405; J2704; J3420; J7030; J7050; J7120; P9016